=== PATIENT | male | born 1975 | race Caucasian/White ===

== ENCOUNTER 2017-01-08 07:06 | Emergency (ER) | payer OTHER ==
[2017-01-08] MEDS ORDERED: TETANUS AND DIPHTHERIA TOXOID 0.5 ML DISP.SYRIN IM ONE (07:30)
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
[2017-01-08 08:20] VITALS: BP 130/90; PULSE 88; TEMP 0; BMI 25.1
== END 2017-01-08 09:05 | disposition home or self-care (01) ==
LOC: JER 07:06
PROC: 3E0234Z Introduction of Serum, Toxoid and Vaccine into Muscle, Percutaneous Approach (ICD-10-PCS; principal; 2017-01-08)
PROC: 0HQGXZZ Repair Left Hand Skin, External Approach (ICD-10-PCS; 2017-01-08)
DX: S61.215A Laceration without foreign body of left ring finger without damage to nail, initial encounter (principal); W26.0XXA Contact with knife, initial encounter; Y93.89 Activity, other specified; Y92.810 Car as the place of occurrence of the external cause; Y99.0 Civilian activity done for income or pay
CPT/HCPCS: 99281-25

== ENCOUNTER 2017-03-03 22:08 | Emergency (ER) | payer OTHER ==
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
[2017-03-03 22:35] VITALS: BP 143/84; PULSE 76; TEMP 97.7; BMI 25.1
== END 2017-03-03 22:57 | disposition home or self-care (01) ==
LOC: JER 22:08
DX: Z77.21 Contact with and (suspected) exposure to potentially hazardous body fluids (principal); Y35.811A Legal intervention involving manhandling, law enforcement official injured, initial encounter; Y93.89 Activity, other specified; Y92.89 Other specified places as the place of occurrence of the external cause; Y99.0 Civilian activity done for income or pay
CPT/HCPCS: 99281-25

== ENCOUNTER 2017-11-08 13:51 | Emergency (ER) | payer OTHER ==
[2017-11-08 13:57] VITALS: BP 130/78; PULSE 84; TEMP 98; BMI 25.1
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
== END 2017-11-08 14:51 | disposition home or self-care (01) ==
LOC: JERFT 13:51 → JER 13:51 → JERFT 14:51
DX: Z77.21 Contact with and (suspected) exposure to potentially hazardous body fluids (principal); Y04.8XXA Assault by other bodily force, initial encounter; Y35.891A Legal intervention involving other specified means, law enforcement official injured, initial encounter; Y93.89 Activity, other specified; Y92.9 Unspecified place or not applicable
CPT/HCPCS: 99281-25

== ENCOUNTER 2017-12-23 15:30 | Emergency (ER) | payer OTHER ==
[2017-12-23 15:37] VITALS: BP 149/94; PULSE 111; BMI 25.1
[2017-12-23] MEDS ORDERED: BACITRACIN 15 GM TUBE TOPICAL OINTMENT TP ONE (15:56)
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
[2017-12-23] MEDS ORDERED: IBUPROFEN 400 MG TABLET (FP) PO ONE ×2 (15:58→16:03)
[2017-12-23] MEDS ORDERED: DIPHTH,PERTUSS(ACELL),TET 0.5 ML DISP.SYRIN IM ONE (15:59)
[2017-12-23] MEDS ORDERED: BACITRACIN 15 GM TUBE TOPICAL OINTMENT ONE (15:59)
== END 2017-12-23 16:32 | disposition home or self-care (01) ==
LOC: JER 15:30 → JERFT 15:30
PROC: 3E0234Z Introduction of Serum, Toxoid and Vaccine into Muscle, Percutaneous Approach (ICD-10-PCS; principal; 2017-12-23)
DX: M25.561 Pain in right knee (principal); S39.82XA Other specified injuries of lower back, initial encounter; S89.81XA Other specified injuries of right lower leg, initial encounter; S09.8XXA Other specified injuries of head, initial encounter; M79.641 Pain in right hand; S40.812A Abrasion of left upper arm, initial encounter; Y35.811A Legal intervention involving manhandling, law enforcement official injured, initial encounter; Y93.89 Activity, other specified; Y92.89 Other specified places as the place of occurrence of the external cause; Y99.0 Civilian activity done for income or pay
CPT/HCPCS: 90715; 99281-25

== ENCOUNTER 2018-08-03 06:10 | Emergency (ER) | payer OTHER ==
[2018-08-03 06:30] VITALS: BP 137/87; PULSE 74; TEMP 98.6; BMI 25.1
[2018-08-03] MEDS ORDERED: ACETAMINOPHEN 325 MG TABLET (FP) PO ONE (07:13)
[2018-08-03] MEDS ORDERED: ACETAMINOPHEN 325 MG TABLET (FP) ONE (07:23)
--- NOTE | 2018-08-03 07:35 | PDOC ---
History of Present Illness - General Chief Complaint: Injury Stated Complaint: YPR-INJURY Time Seen by Provider: 08/03/18 07:04 - History of Present Illness Initial Comments: 43yo M with no significant PMH presenting with finger pain. 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 Patient endorses pain and swelling in the area. He has been able to move the joint as normally. No breaks in skin. Denies fevers, chills, chest pain, or shortness of breath. Past History - Past Medical History Allergies/Adverse Reactions: Allergies Allergy/AdvReac Type Severity Reaction Status Date / Time No Known Allergies Allergy Verified 08/03/18 06:28 Home Medications: Ambulatory Orders Cyclobenzaprine HCl [Flexeril -] 10 mg PO TID PRN #21 tablet MDD 30mg 12/23/17 COPD: No - Surgical History Orthopedic Surgery: Yes (R index) - Immunization History Td Vaccination: (up to date) TDAP Vaccination: Yes Immunization Up to Date: Yes - Suicide/Smoking/Psychosocial Hx Smoking Status: No Smoking History: Never smoked Years of Tobacco Use: 0 Have you smoked in the past 12 months: No Number of Cigarettes Smoked Daily: 0 Cigars Per Day: 0 Information on smoking cessation initiated: No Hx Alcohol Use: No Drug/Substance Use Hx: No Substance Use Type: None Hx Substance Use Treatment: No Review of Systems - Review of Systems Comments:: Constitutional: no fever, no chills HEENT: no throat pain, no dysphagia Cardiovascular: no chest pain, no palpitations Respiratory: no cough, no shortness of breath Gastrointestinal: no abdominal pain, no nausea Genitourinary: no dysuria, no frequency Musculoskeletal: +finger pain, +finger edema Skin: no rash, no itching Neurologic: no headache, no dizziness *Physical Exam - Vital Signs Last Vital Signs Temp Pulse Resp BP Pulse Ox 98.6 F 74 20 137/87 99 08/03/18 06:29 08/03/18 06:29 08/03/18 06:29 08/03/18 06:29 08/03/18 06:29 - Physical Exam Comments: General: Awake, alert, and fully oriented, in no acute distress Head: No signs of trauma Eyes: EOMI, sclera anicteric ENT: Moist mucus membranes Neck: Normal ROM, supple Lungs: Lungs clear, Normal breath sounds Cardio: Regular rhythm, S1 and S2 present Abdomen: Soft, nondistended Extremities: Normal range of motion, Distal pulses present Right hand, third digit: tenderness to palpation of area proximal to DIP dorsally, third digit with normal strength, abduction, adduction, flexion, and extension. Mild erythema and edema SKIN: Warm, Dry, normal turgor Neurologic: Cranial nerves II through XII grossly intact. Normal speech Moderate Sedation - Procedure Monitoring Vital Signs: Procedure Monitoring Vital Signs Temperature 98.6 F 08/03/18 06:29 Pulse Rate 74 08/03/18 06:29 Respiratory Rate 20 08/03/18 06:29 Blood Pressure 137/87 08/03/18 06:29 O2 Sat by Pulse Oximetry (%) 99 08/03/18 06:29 ED Treatment Course - Medications Given in the ED: ED Medications Discontinued Medications Generic Name Dose Route Start Last Admin Trade Name Donaldq PRN Reason Stop Dose Admin Acetaminophen 975 mg 08/03/18 07:13 08/03/18 07:24 Tylenol - PO 08/03/18 07:14 975 mg ONCE ONE Administration Medical Decision Making - Medical Decision Making 43yo M with no significant PMH presenting with finger pain. Exam consistent with finger contusion. Exam with normal strength, abduction, adduction, flexion, and extension. Swelling noted. Ice and tylenol administered. Offered radiograph, but patient declined. Discharged 08/03/18 08:19 *DC/Admit/Observation/Transfer Diagnosis at time of Disposition: Finger injury - Discharge Dispostion Disposition: HOME Condition at time of disposition: Stable - Referrals Referrals: Robert Burnett MD [Primary Care Provider] - Adam Lin MD [Staff Physician] - - Patient Instructions Printed Discharge Instructions: DI for Finger Sprain Additional Instructions: You came into the ED for finger pain.. We performed an exam and do not suspect a fracture. You may experience tenderness and swelling. Place an ice pack with a cloth over the area, twenty minutes on and twenty minutes off. You can also use [id number] tylenol or motrin for pain. Follow the instructions on the medication bottle. If your finger pain does not improve in one week, you can call and make an appointment to see a hand specialist, Dr. Lin Seek immediate medical attention if you experience new or worsening symptoms. If you think you are having an emergency, call for emergency medical services or present to the emergency department right away. - Post Discharge Activity
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
== END 2018-08-03 08:12 | disposition home or self-care (01) ==
LOC: JER 06:10
DX: W20.8XXA Other cause of strike by thrown, projected or falling object, initial encounter (principal); Y93.89 Activity, other specified; Y92.89 Other specified places as the place of occurrence of the external cause; Y99.0 Civilian activity done for income or pay; Y35.891A Legal intervention involving other specified means, law enforcement official injured, initial encounter
CPT/HCPCS: 99283-25

== ENCOUNTER 2019-08-07 19:51 | Emergency (ER) | payer OTHER ==
[2019-08-07 20:10] VITALS: BP 136/84; PULSE 77; TEMP 98; BMI 25.8
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
== END 2019-08-07 20:33 | disposition home or self-care (01) ==
LOC: JERFT 19:51
DX: Z77.21 Contact with and (suspected) exposure to potentially hazardous body fluids (principal); Y35.811A Legal intervention involving manhandling, law enforcement official injured, initial encounter; Y04.1XXA Assault by human bite, initial encounter; Y93.89 Activity, other specified; Y92.89 Other specified places as the place of occurrence of the external cause; Y99.0 Civilian activity done for income or pay
CPT/HCPCS: 99281-25

== ENCOUNTER 2019-08-21 02:57 | Emergency (ER) | payer OTHER ==
[2019-08-21 03:02] VITALS: BP 118/60; PULSE 79; TEMP 98.1; BMI 25.1
--- NOTE | 2019-08-21 03:10 | PDOC ---
*Physical Exam - Vital Signs Last Vital Signs Temp Pulse Resp BP Pulse Ox 98.1 F 79 18 118/60 98 08/21/19 03:00 08/21/19 03:00 08/21/19 03:00 08/21/19 03:00 08/21/19 03:00 Medical Decision Making - Medical Decision Making 08/21/19 03:09 Patient seen by the advanced practice provider under my supervision. Ancillary testing reviewed as necessary. I agree with plan as outlined by the advanced practice provider. Discharge - Discharge Information Problems reviewed: Yes Clinical Impression/Diagnosis: Back pain Qualifiers: Back pain location: low back pain Chronicity: acute Back pain laterality: bilateral Sciatica presence: without sciatica Qualified Code(s): M54.5 - Low back pain Knee contusion Qualifiers: Encounter type: initial encounter Laterality: left Qualified Code(s): S80.02XA - Contusion of left knee, initial encounter Disposition: HOME - Additional Discharge Information Prescriptions: Ibuprofen 600 mg PO QID PRN #20 tablet PRN Reason: Back Pain - Follow up/Referral Referrals: Eddie Charles DO [Staff Physician] - Call tomorrow - Patient Discharge Instructions Patient Printed Discharge Instructions: Low Back Pain Additional Instructions: Wound do light stretches Apply ice to the area for the first 24 hours. Then alternate with ice and heat after. Take ibuprofen every 6 hours as needed for pain. Follow-up with an orthopedic doctor if symptoms persist. A referral was given to you today. Return to the emergency room for any worsening symptoms. - Post Discharge Activity Work/Back to School Note: Back to Work
[2019-08-21] MEDS ORDERED: IBUPROFEN 600 MG TABLET (FP) PO ONE ×3 (03:19→03:48)
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
== END 2019-08-21 03:55 | disposition home or self-care (01) ==
LOC: JER 02:57
DX: M54.5 Low back pain (principal); S80.02XA Contusion of left knee, initial encounter; Y35.891A Legal intervention involving other specified means, law enforcement official injured, initial encounter; Y93.89 Activity, other specified; Y92.89 Other specified places as the place of occurrence of the external cause; Y99.0 Civilian activity done for income or pay
CPT/HCPCS: 99282-25

== ENCOUNTER 2019-12-10 04:06 | Emergency (ER) | payer OTHER ==
[2019-12-10 05:00] VITALS: BP 122/82; PULSE 80; TEMP 98.3; BMI 25.1
== END 2019-12-10 05:29 | disposition home or self-care (01) ==
LOC: FER 04:06
DX: S50.02XA Contusion of left elbow, initial encounter (principal); W19.XXXA Unspecified fall, initial encounter
CPT/HCPCS: 99282-25

== ENCOUNTER 2020-01-04 03:28 | Emergency (ER) | payer OTHER ==
[2020-01-04 03:41] VITALS: BP 132/81; PULSE 81; TEMP 98.2; BMI 25.1
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
[2020-01-04] MEDS ORDERED: IBUPROFEN 600 MG TABLET (FP) PO ONE ×2 (04:01→04:04)
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
== END 2020-01-04 05:06 | disposition home or self-care (01) ==
LOC: JER 03:28
DX: S69.92XA Unspecified injury of left wrist, hand and finger(s), initial encounter (principal); Z77.21 Contact with and (suspected) exposure to potentially hazardous body fluids
CPT/HCPCS: 73130-TC-LT-FY; 99284-25

== ENCOUNTER 2022-11-21 15:01 | Emergency (ER) | payer OTHER, BC ==
[2022-11-21 15:13] VITALS: BP 144/98; PULSE 84; RESP 16; TEMP 98.2; BMI 25.1
[2022-11-21] MEDS ORDERED: KETOROLAC TROMETHAMINE 30 MG/1 ML VIAL IM ONE (15:22)
[2022-11-21] MEDS ORDERED: KETOROLAC TROMETHAMINE 30 MG/1 ML VIAL ONE (15:34)
== END 2022-11-21 16:32 | disposition home or self-care (01) ==
LOC: FER 15:01
PROC: 3E0233Z Introduction of Anti-inflammatory into Muscle, Percutaneous Approach (ICD-10-PCS; principal; 2022-11-21)
DX: M54.50 Low back pain, unspecified (principal); G89.29 Other chronic pain; S50.311A Abrasion of right elbow, initial encounter; S50.312A Abrasion of left elbow, initial encounter; X58.XXXA Exposure to other specified factors, initial encounter; Y99.0 Civilian activity done for income or pay
CPT/HCPCS: 99284-25